=== PATIENT | male | born 2005 | race Caucasian/White ===

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

== ENCOUNTER 2024-02-22 15:40 | Emergency (ER) | payer MEDICAID, OTHER | END 2024-02-22 16:50 | disposition home or self-care (01) | LOC: LB.ED 15:40 | DX: T75.4XXA Electrocution, initial encounter (principal); Z88.0 Allergy status to penicillin | CPT/HCPCS: 99283 ==

== ENCOUNTER 2024-10-14 12:58 | Emergency (ER) | payer SELFPAY | END 2024-10-14 13:45 | disposition home or self-care (01) | LOC: LB.ED 12:58 | DX: M54.50 Low back pain, unspecified (principal); Z88.0 Allergy status to penicillin; Z79.899 Other long term (current) drug therapy | CPT/HCPCS: 99283 ==